=== PATIENT | female | born 1995 | race Caucasian/White ===

== ENCOUNTER 2024-11-20 14:59 | Emergency (ER) | payer OTHER, SELFPAY ==
--- NOTE | ~2024-11-20 | CT_ITS ---
EXAMINATION: CT brain wo con DATE: 11/20/2024 16:10 INDICATION: Headache TECHNIQUE: Computed tomography (CT) of the head was performed without intravenous contrast. Sagittal and coronal reconstructions were performed. The mA was adjusted according to patient size. Iterative reconstruction technique was employed. The dose-length product was 605.33 mGy-cm. COMPARISON: None FINDINGS: No acute intracranial hemorrhage, acute infarction or abnormal extra axial fluid collection. Ventricl es are normal and symmetric. No mass/mass effect. There is an empty sella with pituitary flattened along the floor of the fluid-filled sella which can be seen in the setting of idiopathic intracranial hypertension. The orbits, paranasal sinuses and mastoid air cells are normal. IMPRESSION: 1. Empty sella which can be seen in the setting of idiopathic intracranial hypertension. Otherwise normal head CT. Reviewed, dictated and finalized at location B. IMPRESSION: 1. Empty sella which can be seen in the setting of idiopathic intracranial hy pertension. Otherwise normal head CT.
[2024-11-20 15:01] VITALS: BP 141/75; PULSE 83; RESP 16; TEMP 36.6; O2SAT 100
--- NOTE | 2024-11-20 15:56 | ED_ITS ---
HPI - Headache General Chief Complaint: Headache Stated Complaint: headache Time Seen by Provider: 11/20/24 15:04 History of Present Illness HPI Narrative: Patient is a 29-year-old female who presents to the ER with a 4 day history of headaches. She reports today she started seeing floaters, experiencing nausea and dizziness, and tension in her neck. Patient denies any history of headaches. She reports her only medical history of anxiety. Patient reports she maintains hydration status and does not drink an exorbitant amount of caffeine. She denies any neck stiffness, mastoid tenderness, recent fevers, other signs/symptoms of illness. Related Data Allergies Allergy/AdvReac Type Severity Reaction Status Date / Time No Known Allergies Allergy Verified 11/20/24 15:03 Review of Systems Review of Systems: All systems reviewed & are unremarkable except as noted in HPI and below Exam Narrative: GENERAL: Well appearing, well-nourished, non-toxic, in no acute distress. HEAD: Normocephalic, atraumatic. NECK: Supple. No adenopathy, no masses. RESPIRATORY: Airway patent, respirations nonlabored. Clear to auscultation bilaterally, no rales, rhonchi, wheezing. CARDIOVASCULAR: Regular rate and rhythm without murmurs, rubs, or gallops. Peripheral pulses 2+ and equal bilaterally. ABDOMINAL: Soft, nontender, nondistended, no hepatosplenomegaly. Normoactive BS. MUSCULOSKELETAL: Moves all extremities. Strength/ROM intact without gross deform ities. SKIN: Warm, dry, normal color. No rashes. NEURO: A&O X3. Speech clear. Cranial nerves II-XII intact. No ataxic movements. PSYCHIATRIC: Appropriate mood and affect. Normal interaction. Course Vital Signs Vital signs: Vital Signs Temperature 36.6 C 11/20/24 15:01 Pulse Rate 83 11/20/24 15:01 Respiratory Rate 16 11/20/24 15:01 Blood Pressure 141/75 H 11/20/24 15:01 Pulse Oximetry 100 11/20/24 15:01 Oxygen Delivery Room Air 11/20/24 15:01 Temperature 36.6 C 11/20/24 15:01 Pulse Rate 83 11/20/24 15:01 Respiratory Rate 16 11/20/24 15:01 Blood Pressure 141/75 H 11/20/24 15:01 Pulse Oximetry 100 11/20/24 15:01 Oxygen Delivery Room Air 11/20/24 15:01 MDM - Headache MDM Narrative Medical decision making narrative: Patient is a 29-year-old female who presents to the ER with a 4 day history of headaches. She reports today she started seeing floaters, experiencing nausea and dizziness, and tension in her neck. Patient denies any history of headaches. She reports her only medical history of anxiety. Patient reports she maintains hydration status and does not drink an exorbitant amount of caffeine. She denies any neck stiffness, mastoid tenderness, recent fevers, other signs/symptoms of illness. Labs Ordered: None necessary Imaging Ordered: CT brain Medications Ordered: Benadryl IV, Decadron IV, Reglan IV, 1 L normal saline IV bolus Results: Patient's CT scan indicates no acute intracranial hemorrhage, acute infarction or abnormal extra axial fluid collection. Ventricles are normal and symmetric. No mass/mass effect. There is an empty sella with pituitary flattened along the floor of the fluid-filled sella which can be seen in the s etting of idiopathic intracranial hypertension. The orbits, paranasal sinuses and mastoid air cells are normal. Diagnosis: Migraine headache Consults: Neurology (outpatient) d/t pt's empty sella Patient Education/Shared MDM: Results of imaging and lab work shared with patient. She endorses improvement following medication administration. Patient strongly advised to maintain hydration status upon discharge and follow-up with her PCP as soon as possible. She was also advised to follow up with neurology for monitoring of her empty sella. She will be discharged home with no new prescriptions. Strict return precautions provided. Patient verbalized understanding and is in agreement with plan. Vital signs stable at time of discharge. All questions answered. Differential Diagnosis Differential diagnosis: Likely migraine, tension headache, subarachnoid hemorrhage and headache Imaging Data Attestation: I personally reviewed and interpreted this imaging study as follows: Radiologist's impression: Impressions Head CT 11/20/24 16:12 IMPRESSION: 1. Empty sella which can be seen in the setting of idiopathic intracranial hypertension. Otherwise normal head CT. Discharge Plan Discharge Clinical Impression: Migraine, Headache, Empty sella Patient Disposition: Home Condition: Stable Instructions: Antibiotic Form, Migraine Headache (ED) Additional Instructions: Please return to the ER with any worsening symptoms. Follow-up with primary care provider as soon as possible. Take all regularly scheduled medications as prescribed. You may take Tylenol and ibuprofen for pain control. Please follow-up with Neurology for further evaluation of your ?empty sella. Patient Language: Stateless Follow-up/Referrals: Silvestre Marshall MD [Physician] - (neurology) UNKNOWN,DOCTOR [Primary Care Provider] - Stand Alone Forms: Work/School Release IP Time of Disposition: 17:37
[2024-11-20] MEDS: METOCLOPRAMIDE HCL INJ 10 MG/2 ML VIAL IV PUSH (16:21)
[2024-11-20] MEDS: diphenhydrAMINE HCl INJ 50 MG/ML VIAL 25 MG IV PUSH (16:21)
[2024-11-20] MEDS: dexAMETHasone SOD PHOS INJ 10 MG/ML 1 ML VIAL IV PUSH (16:21)
[2024-11-20] MEDS: SODIUM CHLORIDE 0.9% IV 1,000 ML 999 ML IV CONT (16:21)
--- OUTSIDE RECORDS SUMMARY | 2024-11-20 16:29 | XMS_ITS | Clinical Summary ---
Author Organization [facility] [address] Address [address] [place] [id number] Care Team Providers Care Pie Icer Machine Name Role Phone Elizabeth Temple MD Primary Care Provide r Allergies No known active allergies Medications famotidine (PEPCID) 20 mg tablet Take 1 Tablet by mouth 2 times daily. 08/21/2023 Active hydrOXYzine HCL (ATARAX) 10 mg tabletIndication s:Insomnia, unspecified type Take 1 Tablet (10 mg) by mouth 3 times daily as needed for Itching or Insomnia. 90 Tablet 10/27/2023 Active busPIRone (BUSPAR) 15 mg TabletIndication s:SOTERO (generalized anxiety disorder) Take 1 Tablet (15 mg) by mouth 2 times daily. 180 Tablet 1 01/12/2024 Active FLUoxetine (PROzac) 40 mg capsuleIndicatio ns:SOTERO (generalized anxiety disorder) take 1 capsule by mouth every day in the morning 90 Capsule 1 01/12/2024 Active buPROPion HCL (Wellbutrin XL) 150 mg Extended Release 24 hour tabletIndication s:SOTERO (generalized anxiety disorder) Take 1 Tablet (150 mg) by mouth daily in the morning. 90 Tablet 1 01/31/2024 Active Active Problems Problem Noted Date Diagnosed Date Hx of iron deficiency anemia 09/25/2023 Vitamin D deficiency 09/25/2023 SOTERO (generalized anxiety disorder) 09/08/2023 Morbid obesity with body mass index of 40.0-49.9 09/08/2023 Gastroesophageal reflux disease without esophagi tis 09/08/2023 Hyperlipidemia 09/08/2023 Encounters Date Type Department Care Team Description 11/12/2024 External Device Data [facility] Provider, Abstract 10/19/2024 External Device Data [facility] Provider, Abstract 10/19/2024 External Device Data [facility] Provider, Abstract 10/16/2024 External Device Data [facility] Provider, Abstract 10/02/2024 External Device Data [facility] Provider, Abstract 09/11/2024 External Device Data [facility] Provider, Abstract 09/05/2024 External Device Data [facility] Provider, Abstract from Last 3 Months Immunizations Immunization Administration Dates Next Due (ADACEL/BOOSTRIX)(10 YR UP) TDAP VACCINE, 0.5ML, IM 03/08/2022 Influenza Seasonal Unspecified Formulation IM Family History Medical History Relation Name Comments No Known Problems Father Diabetes Mother Heart Disease Mother Relation Name Status Comments Father Alive Mother Social History Tobacco Use Types Packs/Day Years Used Date Smoking Tobacco: Never Passive Smoke Exposure: Never Smokeless Tobacco: Never Tobacco Cessation:Counseling Given: No Alcohol Use Standard Drinks/Week Comments Not Currently 0 (1 standard drink = 0.6 oz pur e alcohol) socially Comments No Sex and Gender Information Value Date Recorded Sex Assigned at Not on file Legal Sex Female 11:53 AM [employer] Gender Identity Not on file Sexual Orientation Not on file Last Filed Vital Signs Vital Sign Reading Time Taken Comments Blood Pressure 118/52 09/25/2023 7:36 AM [employer] Pulse 82 09/25/2023 7:36 AM [employer] Temperature 35.8 C (96.5 F) 09/25/2023 7:36 AM [employer] Respiratory Rate 18 09/25/2023 7:36 AM [employer] Oxygen Saturation 100% 09/25/2023 7:36 AM [employer] Inhaled Oxygen Concentration - - Weight 120.3 kg (265 lb 3.2 oz) 09/25/2023 7:36 AM [employer] Height 162.6 cm (5' 4 ) 09/25/2023 7:36 AM [employer] Body Mass Index 45.52 09/25/2023 7:36 AM [employer] Plan of Treatment Health Maintenance Due Date Last Done Comments HEPATITIS B VACCINES (1 of 3 - 19+ 3-dose series) 2013 HPV/Cotest (21-29) 2015 PAP SMEAR 2015 INFLUENZA VACCINE (#1) 2024 05/23/2023 CERVICAL CANCER SCREENING 2024 HPV/Cotest (30-65) 2024 PAP SMEAR 2024 DTAP/TDAP/TD VACCINES (2 - T d or Tdap) 03/08/2032 03/08/2022 HPV VACCINES Aged Out No longer eligi ble based on patient's age to complete this topic Care Teams Pie Icer Machine Relationship Specialty Start Date End Date Elizabeth Temple MD [address] [place] [id number] PCP - General Family Practice 09/08/23
[2024-11-20 17:47] VITALS: BP 116/64; PULSE 69; RESP 17; O2SAT 100
== END 2024-11-20 17:49 | disposition home or self-care (01) ==
PROVIDERS: Emergency Provider Registered Nurse
DX: G43.909 Migraine, unspecified, not intractable, without status migrainosus (principal); E23.6 Other disorders of pituitary gland
CPT/HCPCS: 70450; 96361; 96374; 96375; 99284; J1100; J1200; J2765; J7030